=== PATIENT | male | born 1980 | race Two or more races ===

== ENCOUNTER 2018-08-25 02:19 | Emergency (ER) | payer OTHER, MEDICAID ==
[~2018-08-25] VITALS: Ht 190.5 cm; Wt 131.5 kg
[2018-08-25 04:59] LABS: Hemoglobin 15.9 g/dL (13.5-17.5); Lymphocytes # (auto) 1.8 uL; Lymphocytes % (auto) 18.5 % (10.0-50.0); Monocytes # (auto) 0.7 uL; Nucleated Red Blood Cells % 0.2 %
[2018-08-25 05:03] LABS: Basophils # (auto) 0 uL; Basophils % (auto) 0.4 % (0.0-2.0); Eosinophils # (auto) 0.1 uL; Eosinophils % (auto) 0.8 % (0.0-7.0); Hematocrit 48.2 % (41.0-53.0); Mean Corpuscular Hemoglobin 26.7 pg (28.0-32.0); Mean Corpuscular Hgb Conc. 32.9 g/dL (32.0-36.0); Mean Corpuscular Volume 81.4 fL (80.0-100.0); Monocytes % (auto) 7.3 % (0.0-12.0); Platelet Count (auto) 186 10^3/uL (140-450); Red Blood Cells 5.93 10^6/uL (4.5-5.90); Red Cell Distribution Width 15.2 % (11.8-14.3); White Blood Cell 9.5 10^3/uL (4.4-10.8)
[2018-08-25 05:17] LABS: BUN/Creatinine Ratio 21.4; Calcium 8.9 mg/dL (8.5-10.1); Potassium 3.8 mmol/L (3.5-5.1)
[2018-08-25 09:15] VITALS: BP 136/78
== END 2018-08-25 09:48 | disposition home or self-care (01) ==
LOC: EDBD 02:19 → ER 02:26
DX: R55 Syncope and collapse (principal); K21.9 Gastro-esophageal reflux disease without esophagitis; E78.5 Hyperlipidemia, unspecified; E11.9 Type 2 diabetes mellitus without complications
CPT/HCPCS: 36415; 70450; 80048; 85025

== ENCOUNTER 2023-09-22 21:01 | Emergency (ER) | payer MEDICARE, MEDICAID | END 2023-09-22 22:30 | disposition left against medical advice (07) | LOC: ER 21:01 | DX: H57.89 Other specified disorders of eye and adnexa (principal); Z53.21 Procedure and treatment not carried out due to patient leaving prior to being seen by health care provider ==